=== PATIENT | female | born 1970 | race Caucasian/White ===

== ENCOUNTER 2023-10-26 21:01 | Emergency (ER) | payer BC ==
--- NOTE | 2023-10-26 21:15 | ERPHSYRPT ---
- History of Present Illness Time Seen by Provider: 10/26/23 21:01 Source: patient Exam Limitations: no limitations Physician History: Pt states she took a new BP medication 2 days ago(amlodipine) and yesterday started with a rash all over: denies chest pain, abdominal pain, headache; admits to dry heaves today. Allergies/Adverse Reactions: amlodipine Adverse Reaction (Intermediate, Verified 10/26/23 21:05) Swelling Home Medications: Apremilast [Otezla] 1 tab PO BID 09/04/23 [History] Ergocalciferol (Vitamin D2) [Vitamin D2] 1 cap PO WEEKLY 09/04/23 [History] Solifenacin Succinate 5 mg PO DAILY 09/04/23 [History] Trazodone HCl 50 mg [Desyrel 50 mg] 100 mg PO HS 09/04/23 [History] buPROPion HCL [Bupropion HCl Sr] 150 mg PO BID 09/04/23 [History] Omeprazole 20 mg PO DAILY 09/26/23 [History] Hx Tetanus, Diphtheria Vaccination/Date Given: Yes (2008) Hx Influenza Vaccination/Date Given: Yes (2011) Hx Pneumococcal Vaccination/Date Given: No - Review of Systems Cardiac: No Chest Pain Abdominal/Gastrointestinal: Vomiting (dry heaves today), No Abdominal Pain Skin: Rash Neurological: No Headache - Past Medical History Pertinent Past Medical History: Yes Neurological History: No Pertinent History Cardiac History: No Pertinent History Respiratory History: No Pertinent History Endocrine Medical History: No Pertinent History Musculoskeletal History: Arthritis Psycho-Social History: Depression Other Medical History: PATIENT REPORTS SHE QUIT SMOKING ~1 YEAR. APPENDECTOMY. - Past Surgical History Past Surgical History: Yes Gastrointestinal: Appendectomy Female Surgical History: Other Other Surgical History: THERMAL ABLASION - Social History Smoking Status: Current every day smoker How long have you smoked: 10 YEARS Exposure to second hand smoke: Yes Drug Use: none Patient Lives Alone: Yes - Nursing Vital Signs Nursing Vital Signs: Initial Vital Signs Temperature 98.6 F 10/26/23 21:12 Pulse Rate 93 H 10/26/23 21:12 Respiratory Rate 17 10/26/23 21:12 Blood Pressure 140/60 10/26/23 21:12 O2 Sat by Pulse Oximetry 94 L 10/26/23 21:12 Pain Scale Pain Intensity 4 - Physical Exam General Appearance: alert Eye Exam: eyes nml inspection Ears, Nose, Throat Exam: other (minimal edema of uvula; lips mildly edematous) Neck Exam: normal inspection Respiratory Exam: wheezing (mild expiratory wheezing) Cardiovascular Exam: normal heart sounds Gastrointestinal/Abdomen Exam: normal bowel sounds Neurologic Exam: alert, cooperative Skin Exam: rash (diffuse erythematous maculopapular rash) Ordered Tests: Active Orders 24 hr Category Date Time Status IV Insertion STAT Care 10/26/23 21:20 Active CBC W DIFF Stat Lab 10/26/23 21:20 Completed CMP Stat Lab 10/26/23 21:20 Completed Respiratory Therapy Assessment DAILY RT 10/26/23 21:18 Active Medication Summary Discontinued Medications Generic Name Dose Route Start Last Admin Trade Name Freq PRN Reason Stop Dose Admin Albuterol Sulfate 2.5 mg 10/26/23 21:14 10/26/23 21:20 Albuterol Sulfate 2.5 Mg/3 Ml Neb IH 10/26/23 21:15 2.5 mg STAT ONE Administration Albuterol Sulfate Confirm 10/26/23 21:18 Albuterol Sulfate 2.5 Mg/3 Ml Neb Administered 10/26/23 21:19 Dose 2.5 mg IH .STK-MED ONE Methylprednisolone Sodium 0 mg 10/26/23 21:13 10/26/23 21:24 Succinate 125 mg/ Sterile IV 10/26/23 21:14 125 mg Water 2 ml STAT ONE Administration Diphenhydramine HCl 25 mg 10/26/23 21:13 10/26/23 21:22 Diphenhydramine Hcl 50 Mg/Ml Vial IV 10/26/23 21:14 25 mg STAT ONE Administration Diphenhydramine HCl Confirm 10/26/23 21:21 Diphenhydramine Hcl 50 Mg/Ml Vial Administered 10/26/23 21:22 Dose 50 mg .ROUTE .STK-MED ONE Methylprednisolone Sodium Succinate Confirm 10/26/23 21:21 Methylprednis Sod Succ 125 Mg/2 Ml Vial Administered 10/26/23 21:22 Dose 125 mg .ROUTE .STK-MED ONE Sterile Water Confirm 10/26/23 21:21 Water For Injection,Sterile 10 Ml Vial Administered 10/26/23 21:22 Dose 10 ml IJ .STK-MED ONE Lab/Rad Data: Laboratory Result Diagrams 10/26/23 21:20 10/26/23 21:20 Laboratory Results 10/26/23 10/26/23 Range/Units 21:20 21:20 WBC 8.9 (4.0-10.5) x10^3/uL RBC 3.91 L (4.1-5.4) x10^6/uL Hgb 14.0 (12.0-16.0) g/dL Hct 40.0 (35-47) % MCV 102.3 H (78-100) fL MCH 35.8 H (26-32) pg MCHC 35.0 (32-36) g/dL RDW 12.7 (11.5-14.0) % Plt Count 312 (150-450) x10^3/uL MPV 9.4 (7.5-11.0) fL Gran % 76.4 H (36.0-66.0) % Immature Gran % (Auto) 0.3 (0.00-0.4) % Nucleat RBC Rel Count 0.0 (0.00-0.1) % Eos # (Auto) 0.08 (0-0.5) x10^3/uL Immature Gran # (Auto) 0.03 (0.00-0.03) x10^3u/L Absolute Lymphs (auto) 1.47 (1.0-4.6) x10^3/uL Absolute Monos (auto) 0.49 (0.0-1.3) x10^3/uL Absolute Nucleated RBC 0.00 (0.00-0.01) x10^3u/L Lymphocytes % 16.6 L (24.0-44.0) % Monocytes % 5.5 (0.0-12.0) % Eosinophils % 0.9 (0.00-5.0) % Basophils % 0.3 (0.0-0.4) % Absolute Granulocytes 6.78 (1.4-6.9) x10^3/uL Basophils # 0.03 (0-0.4) x10^3/uL Sodium 139 (135-145) mmol/L Potassium 3.8 (3.5-5.1) mmol/L Chloride 104 (98-107) mmol/L Carbon Dioxide 23 (22-30) mmol/L Anion Gap 15.7 H (5-15) MEQ/L BUN 7 (7-17) mg/dL Creatinine 0.90 (0.52-1.04) mg/dL Estimated GFR 76.4 ML/MIN Glucose 120 H (74-106) mg/dL Calcium 10.5 H (8.4-10.2) mg/dL Total Bilirubin 0.90 (0.2-1.3) mg/dL AST 63 H (14-36) U/L ALT 56 H (0-35) U/L Alkaline Phosphatase 130 H (38-126) U/L Serum Total Protein 9.2 H (6.3-8.2) g/dL Albumin 4.8 (3.5-5.0) g/dL - Progress Progress: improved Progress Note: 10/26/23 22:21 Pt's lungs clear, no pharyngeal edema. Pt states she feels better. Counseled pt/family regarding: lab results, diagnosis, need for follow-up Medical Desision Making - Diagnostic Testing Diagnostic test were ordered, analyzed, and reviewed by me: Yes - Departure Departure Disposition: Home Clinical Impression: Allergic reaction to amlodipine Condition: Stable Critical Care Time: No Referrals: ENRIQUE NEWMAN NP [Primary Care Provider] - Follow up/PCP as directed Instructions: Adverse Drug Reactions, Adult (DC) Additional Instructions: Follow up with private doctor tomorrow. Do not take amlodipine. Forms: Work/School Release Form Prescriptions: Hydroxyzine HCl 25 mg [Atarax 25 mg] 25 mg PO Q4H PRN PRN #30 tablet PRN Reason: Allergies Methylprednisolone Packet [Medrol Dosepack] 4 mg PO UD #30 packet
[2023-10-26] MEDS ORDERED: PROVENTIL 2.5 MG/3 ML NEB IH ONE (21:18)
[2023-10-26] MEDS: PROVENTIL 2.5 MG/3 ML NEB IH ONE (21:20)
[2023-10-26] MEDS ORDERED: Sterile H2O 10 ml IJ ONE (21:21)
[2023-10-26] MEDS ORDERED: solu-MEDROL ONE (21:21)
[2023-10-26] MEDS ORDERED: BENADRYL 50 MG/ML ONE ×2 (21:21→22:33)
[2023-10-26] MEDS: BENADRYL 50 MG/ML IV ONE ×2 (21:22→22:34)
[2023-10-26 21:24] VITALS: TEMP 98.6
[2023-10-26] MEDS: solu-MEDROL 125 MG, Sterile H2O 10 ml 2 ML IV ONE (21:24)
[2023-10-26 21:28] LABS: Absolute Neutrophil Ct (ANC) 6.78 x10^3/uL (1.4-6.9); BASOPHIL % 0.3 % (0.0-0.4); Basophil (Absolute #) 0.03 x10^3/uL (0-0.4); Eosinophil % 0.9 % (0.00-5.0); Eosinophil (Absolute #) 0.08 x10^3/uL (0-0.5); IMMATURE GRAN # 0.03 x10^3u/L (0.00-0.03); IMMATURE GRAN % 0.3 % (0.00-0.4); Lymphocyte (Absolute #) 1.47 x10^3/uL (1.0-4.6); Lymphocytes % 16.6 % (24.0-44.0); Mean Cell Volume 102.3 fL (78-100); Mean Corpuscular Hemoglobin 35.8 pg (26-32); Mean Platelet Volume 9.4 fL (7.5-11.0); Monocyte (Absolute #) 0.49 x10^3/uL (0.0-1.3); Monocytes % 5.5 % (0.0-12.0); Neutrophil % 76.4 % (36.0-66.0); Platelet Count 312 x10^3/uL (150-450); Red Blood Count 3.91 x10^6/uL (4.1-5.4); Red Cell Distribution Width 12.7 % (11.5-14.0); White Blood Count 8.9 x10^3/uL (4.0-10.5)
[2023-10-26 21:40] LABS: ALBUMIN 4.8 g/dL (3.5-5.0); ANION GAP 15.7 MEQ/L (5-15); BILIRUBIN,TOTAL 0.9 mg/dL (0.2-1.3); Calcium 10.5 mg/dL (8.4-10.2); Creatinine 1 0.9 mg/dL (0.52-1.04); EST GLOMERULAR FILTRATION RATE 76.4 ML/MIN; Potassium 3.8 mmol/L (3.5-5.1); Total Protein 9.2 g/dL (6.3-8.2)
[2023-10-26 22:10] VITALS: BP 146/79; PULSE 95; RESP 24; O2SAT 93
== END 2023-10-26 22:49 | disposition home or self-care (01) ==
LOC: ED 21:01
DX: L27.0 Generalized skin eruption due to drugs and medicaments taken internally (principal); T46.1X5A Adverse effect of calcium-channel blockers, initial encounter; Z79.899 Other long term (current) drug therapy; Z72.0 Tobacco use
CPT/HCPCS: 36000; 36415; 80053; 85025; 94640; 96374; 96375; 96376; 99284; J1200; J2919; J7609; A9270-GY

== ENCOUNTER 2023-10-28 15:06 | Observation (INO) | payer BC ==
--- NOTE | 2023-10-28 15:17 | ERPHSYRPT ---
- History of Present Illness Time Seen by Provider: 10/28/23 15:15 Source: patient Physician History: 53-year-old female presents to our ED via EMS for evaluation of an allergic reaction. Patient was in our ED yesterday for the same. Patient was diagnosed with allergic reaction to amlodipine. Patient was discharged home with prescription for Medrol Dosepak. Patient has been taking her medication as prescribed. Patient reports worsening of her condition. Patient has for throughout her body. No respiratory complaints. There is involvement of her oral mucous membranes feet and hands. There appears to be disclamation of both hands and feet symptoms are progressive. Symptoms are moderate in intensity. No specific worsening or improving factors. Patient voices no other complaints or concerns at this time. Portions of this note were created with voice recognition technology. There may be grammatical, spelling, punctuation or sound alike errors Timing/Duration: yesterday Severity: moderate Modifying Factors: Improves With: nothing Associated Symptoms: denies symptoms Allergies/Adverse Reactions: amlodipine Adverse Reaction (Intermediate, Verified 10/26/23 21:05) Swelling Home Medications: Apremilast [Otezla] 1 tab PO BID 09/04/23 [History] Ergocalciferol (Vitamin D2) [Vitamin D2] 1 cap PO WEEKLY 09/04/23 [History] Solifenacin Succinate 5 mg PO DAILY 09/04/23 [History] Trazodone HCl 50 mg [Desyrel 50 mg] 100 mg PO HS 09/04/23 [History] buPROPion HCL [Bupropion HCl Sr] 150 mg PO BID 09/04/23 [History] Omeprazole 20 mg PO DAILY 09/26/23 [History] Hx Tetanus, Diphtheria Vaccination/Date Given: Yes (2008) Hx Influenza Vaccination/Date Given: Yes (2011) Hx Pneumococcal Vaccination/Date Given: No Travel Risk - Emerging Infectious Disease Are you exhibiting symptoms associated with any current EIDs: No - Review of Systems Constitutional: No Symptoms, No Fever, No Chills Eyes: No Symptoms Ears, Nose, & Throat: No Symptoms Respiratory: No Symptoms, No Cough, No Dyspnea Cardiac: No Symptoms, No Chest Pain, No Edema, No Syncope Abdominal/Gastrointestinal: No Symptoms, No Abdominal Pain, No Nausea, No Vomiting, No Diarrhea Genitourinary Symptoms: No Symptoms, No Dysuria Musculoskeletal: No Symptoms, No Back Pain, No Neck Pain Skin: No Symptoms, No Rash Neurological: No Symptoms, No Dizziness, No Focal Weakness, No Sensory Changes Psychological: No Symptoms Endocrine: No Symptoms Hematologic/Lymphatic: No Symptoms Immunological/Allergic: No Symptoms All Other Systems: Reviewed and Negative - Past Medical History Pertinent Past Medical History: Yes Neurological History: No Pertinent History ENT History: No Pertinent History Cardiac History: No Pertinent History Respiratory History: No Pertinent History Endocrine Medical History: No Pertinent History Musculoskeletal History: Arthritis GI Medical History: GERD History: No Pertinent History Psycho-Social History: Depression Female Reproductive Disorders: No Pertinent History Other Medical History: PATIENT REPORTS SHE QUIT SMOKING ~1 YEAR. APPENDECTOMY. - Past Surgical History Past Surgical History: Yes Neuro Surgical History: No Pertinent History Cardiac: No Pertinent History Respiratory: No Pertinent History Gastrointestinal: Appendectomy Genitourinary: No Pertinent History Musculoskeletal: No Pertinent History Female Surgical History: Other Other Surgical History: THERMAL ABLASION - Social History Smoking Status: Current every day smoker How long have you smoked: 10 YEARS Exposure to second hand smoke: Yes Drug Use: none Patient Lives Alone: Yes - Nursing Vital Signs Nursing Vital Signs: Initial Vital Signs Temperature 97.0 F 10/28/23 15:22 Pulse Rate 78 10/28/23 15:22 Respiratory Rate 18 10/28/23 15:22 Blood Pressure 162/71 10/28/23 15:22 O2 Sat by Pulse Oximetry 77 L 10/28/23 15:22 Pain Scale Pain Intensity 8 - Physical Exam General Appearance: no apparent distress, alert Eye Exam: PERRL/EOMI, eyes nml inspection Ears, Nose, Throat Exam: normal ENT inspection, TMs normal, pharynx normal, moist mucous membranes Neck Exam: normal inspection, non-tender, supple, full range of motion Respiratory Exam: normal breath sounds, lungs clear, airway intact, No respiratory distress Cardiovascular Exam: regular rate/rhythm, normal heart sounds, normal peripheral pulses Gastrointestinal/Abdomen Exam: soft, normal bowel sounds, No tenderness, No mass Back Exam: normal inspection, normal range of motion, No CVA tenderness, No vertebral tenderness Extremity Exam: normal inspection, normal range of motion, pelvis stable Neurologic Exam: alert, oriented x 3, cooperative, normal mood/affect, nml c erebellar function, nml station & gait, sensation nml, No motor deficits Skin Exam: normal color, warm, dry, other (Purpuric rash throughout body. Disclamation of both hands and feet and lips. There is some tongue swelling as well), No rash Lymphatic Exam: No adenopathy SpO2 Interpretation: normal O2 Delivery: Room Air - Course Nursing assessment & vital signs reviewed: Yes Ordered Tests: Active Orders 24 hr Category Date Time Status Mentally Impaired Teacher STAT Care 10/28/23 15:14 Active IV Insertion STAT Care 10/28/23 15:13 Active Pulse Oximetry (ED) STAT Care 10/28/23 15:13 Active CBC W DIFF Stat Lab 10/28/23 15:20 Completed CMP Stat Lab 10/28/23 15:20 Completed Medication Summary Generic Name Dose Route Start Last Admin Trade Name Freq PRN Reason Stop Dose Admin Sodium Chloride 1,000 mls @ 125 mls/hr 10/28/23 15:45 10/28/23 16:05 Sodium Chloride 0.9% 1000 Ml IV 11/27/23 15:44 125 mls/hr .Q8H KMI Administration Discontinued Medications Generic Name Dose Route Start Last Admin Trade Name Freq PRN Reason Stop Dose Admin Methylprednisolone Sodium 0 mg 10/28/23 15:13 10/28/23 16:06 Succinate 125 mg/ Sterile IV 10/28/23 15:14 125 mg Water 2 ml STAT ONE Administration Diphenhydramine HCl 50 mg 10/28/23 15:13 10/28/23 16:07 Diphenhydramine Hcl 50 Mg/Ml Vial IV 10/28/23 15:14 50 mg STAT ONE Administration Diphenhydramine HCl Confirm 10/28/23 15:59 Diphenhydramine Hcl 50 Mg/Ml Vial Administered 10/28/23 16:00 Dose 50 mg .ROUTE .STK-MED ONE Famotidine 20 mg 10/28/23 15:13 10/28/23 16:07 Famotidine 20 Mg/1 Vial IV 10/28/23 15:14 20 mg STAT ONE Administration Famotidine Confirm 10/28/23 15:59 Famotidine 20 Mg/1 Vial Administered 10/28/23 16:00 Dose 20 mg IV .STK-MED ONE Methylprednisolone Sodium Succinate Confirm 10/28/23 16:00 Methylprednis Sod Succ 125 Mg/2 Ml Vial Administered 10/28/23 16:01 Dose 125 mg .ROUTE .STK-MED ONE Sterile Water Confirm 10/28/23 15:59 Water For Injection,Sterile 10 Ml Vial Administered 10/28/23 16:00 Dose 10 ml IJ .[employer] ONE Lab/Rad Data: Laboratory Result Diagrams 10/28/23 15:20 10/28/23 15:20 Laboratory Results 10/28/23 10/28/23 Range/Units 15:20 15:20 WBC 8.3 (4.0-10.5) x10^3/uL RBC 3.85 L (4.1-5.4) x10^6/uL Hgb 13.5 (12.0-16.0) g/dL Hct 39.9 (35-47) % MCV 103.6 H (78-100) fL MCH 35.1 H (26-32) pg MCHC 33.8 (32-36) g/dL RDW 12.8 (11.5-14.0) % Plt Count 280 (150-450) x10^3/uL MPV 9.1 (7.5-11.0) fL Gran % 81.8 H (36.0-66.0) % Immature Gran % (Auto) 0.4 (0.00-0.4) % Nucleat RBC Rel Count 0.0 (0.00-0.1) % Eos # (Auto) 0.03 (0-0.5) x10^3/uL Immature Gran # (Auto) 0.03 (0.00-0.03) x10^3u/L Absolute Lymphs (auto) 1.01 (1.0-4.6) x10^3/uL Absolute Monos (auto) 0.39 (0.0-1.3) x10^3/uL Absolute Nucleated RBC 0.00 (0.00-0.01) x10^3u/L Lymphocytes % 12.2 L (24.0-44.0) % Monocytes % 4.7 (0.0-12.0) % Eosinophils % 0.4 (0.00-5.0) % Basophils % 0.5 (0.0-0.4) % Absolute Granulocytes 6.76 (1.4-6.9) x10^3/uL Basophils # 0.04 (0-0.4) x10^3/uL Sodium 139 (135-145) mmol/L Potassium 4.1 (3.5-5.1) mmol/L Chloride 106 (98-107) mmol/L Carbon Dioxide 22 (22-30) mmol/L Anion Gap 15.2 H (5-15) MEQ/L BUN 19 H (7-17) mg/dL Creatinine 0.79 (0.52-1.04) mg/dL Estimated GFR 89.4 ML/MIN Glucose 143 H (74-106) mg/dL Calcium 10.3 H (8.4-10.2) mg/dL Total Bilirubin 0.80 (0.2-1.3) mg/dL AST 97 H (14-36) U/L ALT 80 H (0-35) U/L Alkaline Phosphatase 104 (38-126) U/L Serum Total Protein 8.7 H (6.3-8.2) g/dL Albumin 4.6 (3.5-5.0) g/dL - Progress Progress: improved Progress Note: 53-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 Laboratory workup essentially nonremarkable. Patient has been in our ED for approximately 4 hours. There has been no progression of her symptoms. Patient was accepted at [facility] as a transfer. However there are no rooms immediately available. They report that it will be approximately 1 day before a room becomes available. We will admit patient to the floor in the interim. I spoke to Dr. Pollard who accepts admission to observation. Plan of care discussed with patient. She agrees to admission [facility] for further evaluation and treatment. Portions of this note were created with voice recognition technology. There may be grammatical, spelling, punctuation or sound alike errors Complexity problem addressed is moderate acute complicated. No critical care time. Complexity of data reviewed and analyzed is extensive. Test ordered test reviewed results analyzed and correlated clinically with history and physical examination. We communicated with [facility]. Plan of care discussed with hospitalist Dr. Pollard who accepts admission to observation. Risk of complication and or risk of morbidity/mortality patient management is high. Patient requires hospitalization for further evaluation. Patient requires transfer to higher level of care however no beds are immediately available. Vital stable. Time spent to admit patient approximately 30 minutes. Plan of care established for shared decision making. No social determinants of health present impede follow-up. Portions of this note were created with voice recognition technology. 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
[2023-10-28 15:30] LABS: Absolute Neutrophil Ct (ANC) 6.76 x10^3/uL (1.4-6.9); BASOPHIL % 0.5 % (0.0-0.4); Basophil (Absolute #) 0.04 x10^3/uL (0-0.4); Eosinophil % 0.4 % (0.00-5.0); Eosinophil (Absolute #) 0.03 x10^3/uL (0-0.5); Hematocrit 39.9 % (35-47); Hemoglobin 13.5 g/dL (12.0-16.0); IMMATURE GRAN # 0.03 x10^3u/L (0.00-0.03); IMMATURE GRAN % 0.4 % (0.00-0.4); Lymphocyte (Absolute #) 1.01 x10^3/uL (1.0-4.6); Lymphocytes % 12.2 % (24.0-44.0); Mean Cell Volume 103.6 fL (78-100); Mean Corpuscular Hemoglobin 35.1 pg (26-32); Mean Corpuscular Hgb Concent. 33.8 g/dL (32-36); Mean Platelet Volume 9.1 fL (7.5-11.0); Monocyte (Absolute #) 0.39 x10^3/uL (0.0-1.3); Monocytes % 4.7 % (0.0-12.0); Neutrophil % 81.8 % (36.0-66.0); Platelet Count 280 x10^3/uL (150-450); Red Blood Count 3.85 x10^6/uL (4.1-5.4); Red Cell Distribution Width 12.8 % (11.5-14.0); White Blood Count 8.3 x10^3/uL (4.0-10.5)
[2023-10-28 15:47] LABS: ALBUMIN 4.6 g/dL (3.5-5.0); ANION GAP 15.2 MEQ/L (5-15); BILIRUBIN,TOTAL 0.8 mg/dL (0.2-1.3); Calcium 10.3 mg/dL (8.4-10.2); Creatinine 1 0.79 mg/dL (0.52-1.04); EST GLOMERULAR FILTRATION RATE 89.4 ML/MIN; Potassium 4.1 mmol/L (3.5-5.1); Total Protein 8.7 g/dL (6.3-8.2)
[2023-10-28] MEDS ORDERED: Pepcid 20 MG VIAL IV ONE (15:59)
[2023-10-28] MEDS ORDERED: BENADRYL 50 MG/ML ONE (15:59)
[2023-10-28] MEDS ORDERED: Sterile H2O 10 ml IJ ONE ×2 (15:59→21:57)
[2023-10-28] MEDS ORDERED: solu-MEDROL ONE ×2 (16:00→21:57)
[2023-10-28] MEDS: Sodium Chloride 0.9% 1000 ML 1,000 ML IV SCH (16:05)
[2023-10-28] MEDS: solu-MEDROL 125 MG, Sterile H2O 10 ml 2 ML IV ONE (16:06)
[2023-10-28] MEDS: Pepcid 20 MG VIAL IV ONE (16:07)
[2023-10-28] MEDS: BENADRYL 50 MG/ML IV ONE (16:07)
--- NOTE | 2023-10-28 20:36 | PCM.HP ---
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 DELGADILLO is a 53 year old female with a past medical history significant for GERD, hypertension and hyperlipidemia who presents to the hospital after recently being started on amlodipine by her checkman last week. She took doses on Friday and Friday, then developed a rash on her arms. She came to the ER where she received some meds, and improved slightly, so she was sent home. Her condition worsened with increasing erythema, swelling and pain in her feet, arms and mouth, so she came back to the ER. She was given Benadryl, IV steroids and was admitted to the hospital She has been accepted by another facility for tertiary care, but no beds are available currently. She is resting in bed, awake/alert. She reports feeling better than when she arrived. - Review of Systems Constitutional: No Fever, No Chills Eyes: No Vision Changes Ears, Nose, & Throat: No Sinus Drainage Respiratory: No Cough, No Orthopnea, No Short Of Breath Cardiac: No Chest Pain, No Palpitations Abdominal/Gastrointestinal: No Abdominal Pain, No Nausea, No Vomiting, No Diarrhea Genitourinary Symptoms: No Dysuria, No Frequency, No Hematuria Musculoskeletal: No Arthralgias Skin: Rash, Skin Lesions Neurological: No Dizziness, No Focal Weakness Psychological: No Suicidal Ideations Endocrine: No Polyuria, No Polydipsia Medications & Allergies Home Medications: Home Medication List Apremilast [Otezla] 1 tab PO BID 09/04/23 [History Confirmed 09/04/23] Ergocalciferol (Vitamin D2) [Vitamin D2] 1 cap PO WEEKLY 09/04/23 [History Confirmed 09/04/23] Solifenacin Succinate 5 mg PO DAILY 09/04/23 [History Confirmed 09/04/23] Trazodone HCl 50 mg [Desyrel 50 mg] 100 mg PO HS 09/04/23 [History Confirmed 09/04/23] buPROPion HCL [Bupropion HCl Sr] 150 mg PO BID 09/04/23 [History Confirmed 09/04/23] Omeprazole 20 mg PO DAILY 09/26/23 [History Confirmed 09/26/23] Hydroxyzine HCl 25 mg [Atarax 25 mg] 25 mg PO Q4H PRN PRN #30 tablet 10/26/23 [Rx] Methylprednisolone Packet [Medrol Dosepack] 4 mg PO UD #30 packet 10/26/23 [Rx] Allergies/Adverse Reactions: Allergies Allergy/AdvReac Type Severity Reaction Status Date / Time amlodipine AdvReac Intermediate Swelling Verified 10/26/23 21:05 - Past Medical History Past Medical History: Yes Neurological History: No Pertinent History ENT History: No Pertinent History Cardiac History: No Pertinent History Respiratory History: No Pertinent History Endocrine Medical History: No Pertinent History Musculoskelatal History: Arthritis GI Medical History: GERD History: No Pertinent History Pyscho-Social History: Depression Reproductive Disorders: No Pertinent History Comment: PATIENT REPORTS SHE QUIT SMOKING ~1 YEAR. APPENDECTOMY. - Female History Hx Last Menstrual Period: psot Are you now?: No - Past Surgical History Past Surgical History: Yes Neuro Surgical History: No Pertinent History Cardiac History: No Pertinent History Respiratory Surgery: No Pertinent History GI Surgical History: Appendectomy Genitourinary Surgical Hx: No Pertinent History Musculskeletal Surgical Hx: No Pertinent History Female Surgical History: Other Other Surgical History: THERMAL ABLASION - Social History Smoking Status: Current every day smoker How long have you smoked: 10 YEARS Exposure to second hand smoke: Yes Alcohol: Daily Drug Use: none - Social Determinants of Health Will the patient participate in the screening: Yes Do you worry about a steady place to live?: No Do you have any problems with any of the following?: No known problems In the past 12 months,have you had to go without utilities?: No Have you or anyone in your house had to go without enough: No Transportation Issues: No Has anyone in your support network made you feel unsafe?: No - Physical Exam Vital Signs: Vital Signs - 24 hr Temp Pulse Resp BP BP Pulse Ox 10/28/23 20:00 77 16 182/87 95 10/28/23 19:45 73 24 172/80 96 10/28/23 19:30 73 19 178/69 96 10/28/23 19:15 76 20 167/84 96 10/28/23 19:00 73 15 160/84 96 10/28/23 18:41 96 10/28/23 18:00 68 12 165/83 96 10/28/23 17:45 69 14 167/75 98 05/14/24 17:30 68 18 171/83 98 10/28/23 17:15 70 20 172/77 97 10/28/23 17:00 73 15 167/85 96 10/28/23 16:45 70 18 176/89 96 10/28/23 16:30 70 20 169/84 95 10/28/23 16:15 74 18 175/84 95 10/28/23 16:00 76 26 H 170/84 92 L 10/28/23 15:59 73 18 179/82 92 L 10/28/23 15:31 97 10/28/23 15:22 97.0 F 78 18 162/71 77 L General Appearance: no apparent distress Neurologic Exam: alert, oriented x 3 Ears, Nose, Throat Exam: dry mucous membranes Neck Exam: supple Respiratory Exam: No respiratory distress Cardiovascular Exam: regular rate/rhythm Gastrointestinal/Abdomen Exam: soft, No tenderness Extremity Exam: No pedal edema, No swelling Skin Exam: rash, petechiae Results - Labs Lab/Micro Results: Lab Results-Last 24 Hours 10/28/23 10/28/23 Range/Units 15:20 15:20 WBC 8.3 (4.0-10.5) x10^3/uL RBC 3.85 L (4.1-5.4) x10^6/uL Hgb 13.5 (12.0-16.0) g/dL Hct 39.9 (35-47) % MCV 103.6 H (78-100) fL MCH 35.1 H (26-32) pg MCHC 33.8 (32-36) g/dL RDW 12.8 (11.5-14.0) % Plt Count 280 (150-450) x10^3/uL MPV 9.1 (7.5-11.0) fL Gran % 81.8 H (36.0-66.0) % Immature Gran % (Auto) 0.4 (0.00-0.4) % Nucleat RBC Rel Count 0.0 (0.00-0.1) % Eos # (Auto) 0.03 (0-0.5) x10^3/uL Immature Gran # (Auto) 0.03 (0.00-0.03) x10^3u/L Absolute Lymphs (auto) 1.01 (1.0-4.6) x10^3/uL Absolute Monos (auto) 0.39 (0.0-1.3) x10^3/uL Absolute Nucleated RBC 0.00 (0.00-0.01) x10^3u/L Lymphocytes % 12.2 L (24.0-44.0) % Monocytes % 4.7 (0.0-12.0) % Eosinophils % 0.4 (0.00-5.0) % Basophils % 0.5 (0.0-0.4) % Absolute Granulocytes 6.76 (1.4-6.9) x10^3/uL Basophils # 0.04 (0-0.4) x10^3/uL Sodium 139 (135-145) mmol/L Potassium 4.1 (3.5-5.1) mmol/L Chloride 106 (98-107) mmol/L Carbon Dioxide 22 (22-30) mmol/L Anion Gap 15.2 H (5-15) MEQ/L BUN 19 H (7-17) mg/dL Creatinine 0.79 (0.52-1.04) mg/dL Estimated GFR 89.4 ML/MIN Glucose 143 H (74-106) mg/dL Calcium 10.3 H (8.4-10.2) mg/dL Total Bilirubin 0.80 (0.2-1.3) mg/dL AST 97 H (14-36) U/L ALT 80 H (0-35) U/L Alkaline Phosphatase 104 (38-126) U/L Serum Total Protein 8.7 H (6.3-8.2) g/dL Albumin 4.6 (3.5-5.0) g/dL Assessment/Plan (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 Admit to hospital, await possible transfer to tertiary hospital 2. IVFs 3. Isolation 4. Continue trial of steroids 5. Hold amlodipine 6. Clear liquids - may need to be NPO if she is unable to swallow 7. DVT/GI prophylaxis Code(s): PRJ5478 - (2) Hypertensive urgency Current Visit: Yes Status: Acute Assessment & Plan: Blood pressure in the 180s, avoid calcium channel blockers for now 1. Will start IV Labetalol for bp control 2. Monitor blood pressure readings Code(s): I16.0 - HYPERTENSIVE URGENCY (3) Elevated LFTs Current Visit: Yes Status: Acute Assessment & Plan: Likely medication related versus effects of TEN 1. Monitor LFTs 2. Defer imaging for now Code(s): R79.89 - OTHER SPECIFIED ABNORMAL FINDINGS OF BLOOD CHEMISTRY (4) Hypercalcemia Current Visit: Yes Status: Acute Assessment & Plan: Likely from prerenal azotemia 1. IVFs 2. Check ionized calcium 3. Defer bisphosphonate/calcitonin for now Code(s): E83.52 - HYPERCALCEMIA Telemedicine Encounter - Telemedicine Encounter Telemedicine Encounter: The entirety of this encounter was performed via Telemedicine"
[2023-10-28] MEDS ORDERED: FEVERALL 650 MG PR PRN (20:43)
[2023-10-28] MEDS: TRANDATE 20 MG/4 ML SYRINGE IV SCH (21:35)
[2023-10-28] MEDS: PROTONIX 40 MG IV IV SCH (22:20)
[2023-10-28] MEDS: solu-MEDROL 40 MG, Sterile H2O 10 ml 1 ML IV SCH (22:20)
[2023-10-28] MEDS: Hydromorphone 1 mg/ml Injection IV PRN (23:50)
[2023-10-29] MEDS ORDERED: solu-MEDROL ONE (04:18)
[2023-10-29] MEDS ORDERED: Sterile H2O 10 ml IJ ONE (04:19)
[2023-10-29] MEDS: BENADRYL 50 MG/ML IV PRN (04:52)
[2023-10-29 04:56] LABS: Absolute Neutrophil Ct (ANC) 5.03 x10^3/uL (1.4-6.9); BASOPHIL % 0.3 % (0.0-0.4); Basophil (Absolute #) 0.02 x10^3/uL (0-0.4); Eosinophil (Absolute #) 0 x10^3/uL (0-0.5); Hematocrit 39.9 % (35-47); Hemoglobin 13.2 g/dL (12.0-16.0); IMMATURE GRAN # 0.02 x10^3u/L (0.00-0.03); IMMATURE GRAN % 0.3 % (0.00-0.4); Lymphocyte (Absolute #) 0.96 x10^3/uL (1.0-4.6); Lymphocytes % 15.5 % (24.0-44.0); Mean Cell Volume 106.4 fL (78-100); Mean Corpuscular Hemoglobin 35.2 pg (26-32); Mean Corpuscular Hgb Concent. 33.1 g/dL (32-36); Mean Platelet Volume 9.6 fL (7.5-11.0); Monocyte (Absolute #) 0.18 x10^3/uL (0.0-1.3); Monocytes % 2.9 % (0.0-12.0); Platelet Count 287 x10^3/uL (150-450); Red Blood Count 3.75 x10^6/uL (4.1-5.4); Red Cell Distribution Width 12.4 % (11.5-14.0); White Blood Count 6.2 x10^3/uL (4.0-10.5)
[2023-10-29] MEDS ORDERED: TRANDATE 20 MG/4 ML SYRINGE IV PRN (07:29)
[2023-10-29] MEDS: ENOXAPARIN SODIUM SQ SCH (09:21)
[2023-10-29] MEDS: Hydromorphone 1 mg/ml Injection IV PRN (10:57)
--- NOTE | 2023-10-29 12:27 | PCM.DS ---
Discharge Summary Date of Admission: 10/28/23 20:04 Date of Discharge: 10/29/23 Admitting Physician: KERRY MULLINS MD Primary Care Provider: ENRIQUE NEWMAN Allergies Allergies amlodipine Adverse Reaction (Intermediate, Verified 10/26/23 21:05) Swelling Hospital Summary - Hospital Course Hospital Course: Ms. DELGADILLO is a 53 year old female with a past medical history significant for GERD, hypertension and hyperlipidemia who presents to the hospital after recently being started on amlodipine by her systems support engineer last week admitted with toxic epidermal necrolysis . She took doses on Friday and Friday, then developed a rash on her arms. She came to the ER where she received some meds, and improved slightly, so she was sent home. Her condition worsened with increasing erythema, swelling and pain in her feet, arms and mouth, so she came back to the ER. She was given Benadryl, IV steroids and was admitted to the hospital She has been accepted by another facility for tertiary care, but no beds are available currently. Transfer pending. 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 Admit to hospital, await possible transfer to tertiary hospital 2. IVFs 3. Isolation 4. Continue trial of steroids 5. Hold amlodipine 6. Clear liquids - may need to be NPO if she is unable to swallow 7. DVT/GI prophylaxis Code(s): TKB8909 - (2) Hypertensive urgency Current Visit: Yes Status: Acute Assessment & Plan: Blood pressure in the 180s, avoid calcium channel blockers for now 1. Will start IV Labetalol for bp control 2. Monitor blood pressure readings 10/28: -stable Code(s): I16.0 - HYPERTENSIVE URGENCY (3) Elevated LFTs Current Visit: Yes Status: Acute Assessment & Plan: Likely medication related versus effects of TEN 1. Monitor LFTs 2. Defer imaging for now 10/28: -improving Code(s): R79.89 - OTHER SPECIFIED ABNORMAL FINDINGS OF BLOOD CHEMISTRY (4) Hypercalcemia Current Visit: Yes Status: Acute Assessment & Plan: Likely from prerenal azotemia 1. IVFs 2. Check ionized calcium 3. Defer bisphosphonate/calcitonin for now 10/28: -WNL Code(s): E83.52 - HYPERCALCEMIA I spent 35 minutes [id number] with the patient on the day of discharge performing discharge exam, discussing hospital stay and discharge instructions with patient and caregivers, preparation of discharge records, prescriptions & referral forms and addressing any questions/concerns the patient had as documented above. - Vitals & Intake/Output Vital Signs: Vital Signs Temperature 97.9 F 10/29/23 08:00 Pulse Rate 70 10/29/23 09:44 Respiratory Rate 21 10/29/23 09:44 Blood Pressure 160/65 10/29/23 09:44 O2 Sat by Pulse Oximetry 92 L 10/29/23 09:44 Intake & Output: Intake & Output 10/27/23 10/28/23 10/29/23 10/30/23 11:59 11:59 11:59 11:59 Intake Total 1925 Balance 1925 Weight 122.47 kg - Lab Result Diagrams: 10/29/23 04:22 10/28/23 15:20 Lab Results-Last 24 Hrs: Lab Results-Last 24 Hours 10/28/23 10/28/23 10/29/23 Range/Units 15:20 15:20 04:22 WBC 8.3 6.2 (4.0-10.5) x10^3/uL RBC 3.85 L 3.75 L (4.1-5.4) x10^6/uL Hgb 13.5 13.2 (12.0-16.0) g/dL Hct 39.9 39.9 (35-47) % MCV 103.6 H 106.4 H (78-100) fL MCH 35.1 H 35.2 H (26-32) pg MCHC 33.8 33.1 (32-36) g/dL RDW 12.8 12.4 (11.5-14.0) % Plt Count 280 287 (150-450) x10^3/uL MPV 9.1 9.6 (7.5-11.0) fL Gran % 81.8 H 81.0 H (36.0-66.0) % Immature Gran % (Auto) 0.4 0.3 (0.00-0.4) % Nucleat RBC Rel Count 0.0 0.0 (0.00-0.1) % Eos # (Auto) 0.03 0 (0-0.5) x10^3/uL Immature Gran # (Auto) 0.03 0.02 (0.00-0.03) x10^3u/L Absolute Lymphs (auto) 1.01 0.96 L (1.0-4.6) x10^3/uL Absolute Monos (auto) 0.39 0.18 (0.0-1.3) x10^3/uL Absolute Nucleated RBC 0.00 0.00 (0.00-0.01) x10^3u/L Lymphocytes % 12.2 L 15.5 L (24.0-44.0) % Monocytes % 4.7 2.9 (0.0-12.0) % Eosinophils % 0.4 0.0 (0.00-5.0) % Basophils % 0.5 0.3 (0.0-0.4) % Absolute Granulocytes 6.76 5.03 (1.4-6.9) x10^3/uL Basophils # 0.04 0.02 (0-0.4) x10^3/uL Ionized Calcium (1.12-1.32) mmol/L Sodium 139 (135-145) mmol/L Potassium 4.1 (3.5-5.1) mmol/L Chloride 106 (98-107) mmol/L Carbon Dioxide 22 (22-30) mmol/L Anion Gap 15.2 H (5-15) MEQ/L BUN 19 H (7-17) mg/dL Creatinine 0.79 (0.52-1.04) mg/dL Estimated GFR 89.4 ML/MIN Glucose 143 H (74-106) mg/dL POC Glucometer (74 to 106) mg/dL Calcium 10.3 H (8.4-10.2) mg/dL Total Bilirubin 0.80 (0.2-1.3) mg/dL AST 97 H (14-36) U/L ALT 80 H (0-35) U/L Alkaline Phosphatase 104 (38-126) U/L Serum Total Protein 8.7 H (6.3-8.2) g/dL Albumin 4.6 (3.5-5.0) g/dL Prealbumin (17.6-36.0) mg/dL 10/29/23 10/29/23 10/29/23 Range/Units 04:22 04:22 04:30 WBC (4.0-10.5) x10^3/uL RBC (4.1-5.4) x10^6/uL Hgb (12.0-16.0) g/dL Hct (35-47) % MCV (78-100) fL MCH (26-32) pg MCHC (32-36) g/dL RDW (11.5-14.0) % Plt Count (150-450) x10^3/uL MPV (7.5-11.0) fL Gran % (36.0-66.0) % Immature Gran % (Auto) (0.00-0.4) % Nucleat RBC Rel Count (0.00-0.1) % Eos # (Auto) (0-0.5) x10^3/uL Immature Gran # (Auto) (0.00-0.03) x10^3u/L Absolute Lymphs (auto) (1.0-4.6) x10^3/uL Absolute Monos (auto) (0.0-1.3) x10^3/uL Absolute Nucleated RBC (0.00-0.01) x10^3u/L Lymphocytes % (24.0-44.0) % Monocytes % (0.0-12.0) % Eosinophils % (0.00-5.0) % Basophils % (0.0-0.4) % Absolute Granulocytes (1.4-6.9) x10^3/uL Basophils # (0-0.4) x10^3/uL Ionized Calcium 1.10 L (1.12-1.32) mmol/L Sodium (135-145) mmol/L Potassium (3.5-5.1) mmol/L Chloride (98-107) mmol/L Carbon Dioxide (22-30) mmol/L Anion Gap (5-15) MEQ/L BUN (7-17) mg/dL Creatinine (0.52-1.04) mg/dL Estimated GFR ML/MIN Glucose (74-106) mg/dL POC Glucometer (74 to 106) mg/dL Calcium (8.4-10.2) mg/dL Total Bilirubin (0.2-1.3) mg/dL AST (14-36) U/L ALT (0-35) U/L Alkaline Phosphatase (38-126) U/L Serum Total Protein (6.3-8.2) g/dL Albumin (3.5-5.0) g/dL Prealbumin 18.88 (17.6-36.0) mg/dL 10/29/23 Range/Units 09:10 WBC (4.0-10.5) x10^3/uL RBC (4.1-5.4) x10^6/uL Hgb (12.0-16.0) g/dL Hct (35-47) % MCV (78-100) fL MCH (26-32) pg MCHC (32-36) g/dL RDW (11.5-14.0) % Plt Count (150-450) x10^3/uL MPV (7.5-11.0) fL Gran % (36.0-66.0) % Immature Gran % (Auto) (0.00-0.4) % Nucleat RBC Rel Count (0.00-0.1) % Eos # (Auto) (0-0.5) x10^3/uL Immature Gran # (Auto) (0.00-0.03) x10^3u/L Absolute Lymphs (auto) (1.0-4.6) x10^3/uL Absolute Monos (auto) (0.0-1.3) x10^3/uL Absolute Nucleated RBC (0.00-0.01) x10^3u/L Lymphocytes % (24.0-44.0) % Monocytes % (0.0-12.0) % Eosinophils % (0.00-5.0) % Basophils % (0.0-0.4) % Absolute Granulocytes (1.4-6.9) x10^3/uL Basophils # (0-0.4) x10^3/uL Ionized Calcium (1.12-1.32) mmol/L Sodium (135-145) mmol/L Potassium (3.5-5.1) mmol/L Chloride (98-107) mmol/L Carbon Dioxide (22-30) mmol/L Anion Gap (5-15) MEQ/L BUN (7-17) mg/dL Creatinine (0.52-1.04) mg/dL Estimated GFR ML/MIN Glucose (74-106) mg/dL POC Glucometer 94 (74 to 106) mg/dL Calcium (8.4-10.2) mg/dL Total Bilirubin (0.2-1.3) mg/dL AST (14-36) U/L ALT (0-35) U/L Alkaline Phosphatase (38-126) U/L Serum Total Protein (6.3-8.2) g/dL Albumin (3.5-5.0) g/dL Prealbumin (17.6-36.0) mg/dL Discharge Exam General Appearance: no apparent distress Neurologic Exam: alert, oriented x 3, cooperative Eye Exam: PERRL Ears, Nose, Throat Exam: dry mucous membranes, other (mucositis/pupuric rash to lips/mucosa, tongue swelling) Neck Exam: normal inspection Respiratory Exam: normal breath sounds, lungs clear Cardiovascular Exam: regular rate/rhythm, normal heart sounds Gastrointestinal/Abdomen Exam: soft, normal bowel sounds Pelvic Exam: deferred Rectal Exam: deferred Back Exam: normal inspection Extremity Exam: other (see skin exam) Skin Exam: rash (purpuric to bilateral arms/hands/legs/feet/mouth) Wound Assessment: Skin/Wound Assessment Wound/Incision Assessment Start: 10/28/23 23:28 Text: Status: Active Freq: Q6H Protocol: Document 10/29/23 05:28 AF (Rec: 10/29/23 07:38 AF [id number]) Wound/Incision Assessment Anterior/Posterior Wound Assessment Shift Assessment Drainage Amount None Drainage Odor None/Absent Comment rash/ hives throughout skin on body Wound Photo Photo Taken No Final Diagnosis/Problem List - Final Discharge Diagnosis/Problem (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 Current Visit: Yes Status: Acute Code(s): [id number] - (2) Elevated LFTs Current Visit: Yes Status: Acute Code(s): R79.89 - OTHER SPECIFIED ABNORMAL FINDINGS OF BLOOD CHEMISTRY (3) Hypercalcemia Current Visit: Yes Status: Acute Code(s): E83.52 - HYPERCALCEMIA (4) Hypertensive urgency Current Visit: Yes Status: Acute Code(s): I16.0 - HYPERTENSIVE URGENCY - Discharge Disposition: DC TO OTHER HOSP Condition: Fair Prescriptions: New Diphenhydramine HCl 50 mg/ml [Benadryl 50 mg/ml] 25 mg IV Q6H PRN PRN PRN Reason: Itching Enoxaparin Sodium [Enoxaparin Sodium] 40 mg SQ DAILY Acetaminophen 650 mg [Feverall 650 mg] 650 mg DC Q4H PRN PRN supp PRN Reason: Pain And/Or Fever Pantoprazole 40 mg [Protonix 40 mg IV] 40 mg IV HS Methylprednisolone Sod Suc 40M [solu-MEDROL] 40 mg IV Q8HT Labetalol HCl 20 mg/4 ml [Trandate 20 mg/4 ml Syringe] 10 mg IV Q4HPRN PRN Discontinued buPROPion HCL [Bupropion HCl Sr] 150 mg PO BID Trazodone HCl 50 mg [Desyrel 50 mg] 100 mg PO HS Omeprazole 20 mg PO DAILY Methylprednisolone Packet [Medrol Dosepack] 4 mg PO UD #30 packet Hydroxyzine HCl 25 mg [Atarax 25 mg] 25 mg PO Q4H PRN PRN #30 tablet PRN Reason: Allergies No Action Solifenacin Succinate 5 mg PO DAILY Ergocalciferol (Vitamin D2) [Vitamin D2] 1 cap PO WEEKLY Apremilast [Otezla] 1 tab PO BID Follow up with: TRENT MCCARTNEY),ENRIQUE NOONAN MD [NON-STAFF PHY W/O PRIVILEGES] -
[2023-10-29 13:31] VITALS: TEMP 97.1
[2023-10-29 15:16] VITALS: RESP 20; O2SAT 95
[2023-10-29 16:07] VITALS: BP 156/79; PULSE 67
[2023-10-29] MEDS ORDERED: PROTONIX 40 MG IV IV SCH (22:00)
== END 2023-10-29 16:58 ==
LOC: ED 15:06 → ICU 20:04
PROVIDERS: ADMIT Internal Medicine Nephrology; ATTEND Internal Medicine Nephrology
DX: L51.2 Toxic epidermal necrolysis [Lyell] (principal); I16.0 Hypertensive urgency; R79.89 Other specified abnormal findings of blood chemistry; E83.52 Hypercalcemia; F17.200 Nicotine dependence, unspecified, uncomplicated; E78.5 Hyperlipidemia, unspecified; Z79.899 Other long term (current) drug therapy
CPT/HCPCS: 36000; 36415; 80053; 82330; 82947; 84134; 85025; 93041; 94760; 96374; 96375; 99285; Q3014; 93268; J1170; J1200; J1650; J2919; G0378

== ENCOUNTER 2024-01-07 06:16 | Day surgery (SDC) | payer BC ==
[2024-01-07] MEDS ORDERED: Sensorcaine 0.25% 10 ML IJ ONE (06:17)
[2024-01-07] MEDS ORDERED: TYLENOL EXTRA STRENGTH 500 MG ONE (06:25)
[2024-01-07] MEDS ORDERED: Lactated Ringers 1,000 ML IV ONE (06:26)
[2024-01-07] MEDS ORDERED: NEURONTIN ONE (06:26)
[2024-01-07] MEDS ORDERED: celeBREX 100 MG ONE (06:26)
[2024-01-07] MEDS ORDERED: Decadron 4 MG ONE (06:26)
[2024-01-07] MEDS ORDERED: Lactated Ringers 1,000 ML IV SCH (06:30)
[2024-01-07] MEDS: Decadron 4 MG PO ONE (06:33)
[2024-01-07] MEDS: NEURONTIN PO ONE (06:34)
[2024-01-07] MEDS: TYLENOL EXTRA STRENGTH 500 MG PO ONE (06:34)
[2024-01-07] MEDS: Lactated Ringers 1,000 ML IV SCH (06:35)
[2024-01-07] MEDS: KEFZOL 1 GM** 3 G in Sodium Chloride 0.9% 50 ML 50 ML IV ONE (06:35)
[2024-01-07] MEDS ORDERED: Marcaine Mpf 0.5% Vial 30 Ml ONE (06:37)
[2024-01-07] MEDS ORDERED: EXPAREL 133 MG/10 ML VIAL IJ ONE (06:37)
[2024-01-07] MEDS ORDERED: Tobramycin 1.2 GM Injection IJ ONE (06:37)
[2024-01-07] MEDS: celeBREX 100 MG PO ONE (06:38)
[2024-01-07] MEDS ORDERED: GARAMYCIN INJ ONE ×2 (06:46→06:48)
[2024-01-07] MEDS ORDERED: Sodium Chloride 0.9% 100 ML ONE ×2 (06:49→09:00)
[2024-01-07 07:00] LABS: Appearance Turbid (Clear); Bacteria Many /HPF (None Seen); Bilirubin Negative (Negative); Blood NHT (Negative); Epithelial Cells Many /HPF (None Seen); Glucose, Urine Negative (Negative); Ketones Negative (Negative); Leukocyte Esterase Moderate (Negative); Nitrite Positive (Negative); Ph 5.5 (4.6-8.0); Protein,Urine Dip Negative (Negative); Urobilinogen 0.2 mg/dL (0.2); WBC 51-100 /HPF (0-5)
[2024-01-07 07:01] LABS: ADD URINE CULTURE? YES (NO)
[2024-01-07] MEDS ORDERED: Xylocaine-Mpf 2% 5 Ml Vial ONE (07:56)
[2024-01-07] MEDS ORDERED: Marcaine 0.5%/Epinephrine 10 ML ONE (07:56)
[2024-01-07] MEDS ORDERED: MARCAINE 0.25% PF/ EPI 1:200,000 ONE (07:58)
[2024-01-07] MEDS ORDERED: Versed 2 MG/2 ML Injection ONE (07:59)
[2024-01-07] MEDS ORDERED: SUBLIMAZE 100 MCG/2 ML ONE ×2 (07:59→09:26)
[2024-01-07] MEDS ORDERED: Zofran 4 MG/2 ML VIAL ONE (08:45)
[2024-01-07] MEDS ORDERED: Quelicin Fliptop 200 MG/10 ML ONE (08:45)
[2024-01-07] MEDS ORDERED: Epinephrine Preservative Free 1 MG/ML ONE (08:45)
[2024-01-07] MEDS ORDERED: DIPRIVAN 200 MG/20 ML IV ONE (08:45)
[2024-01-07] MEDS ORDERED: TRANEXAMIC ACID 1000 MG/10 ML ONE (09:00)
[2024-01-07] MEDS ORDERED: Sodium Chloride 0.9% 1000 ML 1,000 ML ONE (09:40)
[2024-01-07] MEDS ORDERED: ROCURONIUM BROMIDE IV ONE ×2 (09:46)
[2024-01-07] MEDS ORDERED: BRIDION 200MG/2ML IV ONE (10:18)
[2024-01-07] MEDS ORDERED: DILAUDID 2 MG INJECTION ONE (10:21)
--- NOTE | 2024-01-07 12:15 | XRAY ---
Indication: Follow-up surgery. Comparison: August 14, 2023 2 view left knee demonstratea new intact total knee arthroplasty with postsurgical soft tissue swelling and soft tissue emphysema. Again osteopenia. No other bony, articular, or soft tissue abnormalities.
[2024-01-07] MEDS ORDERED: TRANDATE 20 MG/4 ML SYRINGE IV ONE (12:17)
[2024-01-07] MEDS ORDERED: TYLENOL 325 MG PO PRN (14:27)
[2024-01-07] MEDS: Oxy-IR 5 MG PO PRN (14:50)
[2024-01-07 15:31] VITALS: BP 156/87; O2SAT 94
[2024-01-07 16:36] VITALS: PULSE 113; RESP 18; TEMP 97.6
--- NOTE | 2024-01-08 10:55 | OP ---
SURGERY DATE/TIME: 01/07/2024 4653 - 3647 PREOPERATIVE DIAGNOSIS: Degenerative arthritis, left knee. POSTOPERATIVE DIAGNOSIS: Degenerative arthritis, left knee. PROCEDURE PERFORMED: Left total knee arthroplasty. SURGEON: Daniel Wright M.D. COMPONENTS: Danuta Persona Press-Fit femur size 4 CRPPS, OsseoTi tibia size C, 10 mm polyethylene. INDICATIONS: This is a 53-year-old female who has been followed in clinic for left knee pain. X-rays show advanced arthritis of the medial compartment. She had minimal anterior knee symptomatology. She had conservative care without relief and desired additional pain relief so total knee arthroplasty was proposed. The procedure risks and benefits were discussed. Medical clearance was obtained. She visited a dentist and had dental extractions. She was diagnosed with chronic bacteruria. After medical clearance, she was scheduled for left total knee arthroplasty with Danuta PSI components. PROCEDURE: The patient was seen preoperatively. The operative limb was identified, confirmed and initialed. The plan was reviewed. IV antibiotics were initiated, Ancef 3 g IV. She was then taken to the preoperative holding area where the anesthesia staff administered an adductor canal block. She was taken to the operating room, placed under general anesthesia supine on an OR table. Tourniquet was applied to the left thigh over Webril padding. Sterile prep and drape to the left lower extremity were carried out. We exsanguinated the limb with an Esmarch, inflated tourniquet to 300 mmHg. Zimmer leg positioner was attached. Exposed skin was covered with Ioban. A midline incision was made. We cauterized bleeders as we approached the deep fascia, which was then incised along the medial retinaculum. The patella was everted. The medial tibia was exposed subperiosteally. The custom made Danuta PSI guide was placed on the femur. Guidepins were placed anteriorly and drill holes distally. The cutting guide was placed on the distal femur and we proceeded to cut the distal femur at that time. The 4-in-1 finishing guide was placed on the previously made drill holes. The finishing cuts were made. Care was taken to protect collateral structures and popliteus tendon during this. We then placed the tibial guide in place. Soft tissue was cleared to promote proper seating of this guide. Once the guide was properly seated and alignment was checked, we made the proximal tibial cut. The 10 mm blum spacer block was inserted and it had good balance and fit. Pulsatile lavage was performed. The trial components were inserted and trial range of motion and stability were tested and found to be satisfactory. We examined the patella and felt that the patella did not require resurfacing due to maintenance of satisfactory cartilage thickness and lack of preoperative anterior knee pain. Two small osteophytes on the retropatellar surface were removed. The drill holes were placed in the femur through the trial component. Rotation was set for the tibial component. The wedge cut was made for the final tibial component and drill holes for the Press-Fit pegs. Pulsatile lavage was performed. Betadine soak was performed. Repeat lavage was performed. We injected our postoperative numbing cocktail which consisted of 20 mL of Exparel, 20 mL of 0.25% Sensorcaine and 40 mL of saline. Following that, we impacted our implants and inserted a 10 mm polyethylene spacer. Excellent range of motion and stability were obtained. We then performed wound closure. We closed the retinaculum with #1 Ethibond and #1 Stratafix. This was followed by closure of the subcutaneous tissue with 2-0 Vicryl and skin with running subcuticular Monocryl followed by skin glue. Patient tolerated the procedure well.
== END 2024-01-07 16:50 | disposition home or self-care (01) ==
LOC: SDC 06:16 → MED SURG 10:50 → SDC 16:50
PROVIDERS: ATTEND Orthopaedic Surgery
DX: M17.12 Unilateral primary osteoarthritis, left knee (principal)
CPT/HCPCS: 27447; 36415; 73560; 81001; 83036; 87086; 93005; J0171; J0330; J0690; J1170; J1580; J2250; J2405; J2704; J3010; J3260; A9270-GY